=== PATIENT | female | born 1935 | race African-American/Black ===

== ENCOUNTER 2016-10-13 10:10 | Day surgery (SDC) | payer MEDICARE, OTHER ==
[2016-10-11 14:10] VITALS: BMI 24.7
[2016-10-13 10:39] VITALS: TEMP 98.3
[2016-10-13] MEDS ORDERED: LIDOCAINE HCL 1%, 10 MG/ML (20ML VIAL) ONE (11:01)
[2016-10-13] MEDS ORDERED: methylPREDNISolone ACET (DEPO) 80 MG/1 ML VIAL ONE (11:01)
[2016-10-13] MEDS ORDERED: BUPIVACAINE HCL/PF 0.5% (5MG/ML) 10 ML VIAL ONE (11:01)
--- NOTE | 2016-10-13 11:13 | HP ---
[facility]ellite [facility] - Chief Complaint Chief Complaint: right hip pain - Past Medical History Allergies/Adverse Reactions: Allergies Allergy/AdvReac Type Severity Reaction Status Date / Time No Known Allergies Allergy Verified 10/11/16 14:11 - Current Medications Current Medications: Home Medications Medication Instructions Recorded Acetaminophen [Tylenol] 500 mg PO PRN 10/11/16 Atorvastatin Ca [Lipitor] 10 mg PO HS 10/11/16 Olmesartan/Amlodipin/Hcthiazid 1 each PO DAILY 10/11/16 [Tribenzor 40-5-12.5 mg Tablet] Satellite Physical Exam - Physical Examination Vital Signs: Vital Signs Period Temp Pulse Resp BP Sys/Bardales Pulse Ox Last 24 Hr 98.3 F 101 18 147/84 98 General Appearance: Well Nourished, Well Developed, Alert & Oriented x3 ENT: Clear Lung: Normal air movement Heart: Regular rate & rhythm Extremities: Other (right hip- + ttp, decr rom, nvi xrays show severe hip djd) Neurological: Intact, Alert, Oriented Satellite Impression/Plan - Impression/Plan Impression: right hip djd Operative Procedure: right hip arthrogram with injection of cortisone Date to be Performed: 10/13/16
[2016-10-13] MEDS ORDERED: methylPREDNISolone ACET (DEPO) 80 MG/1 ML VIAL IM ONE (11:33)
[2016-10-13] MEDS ORDERED: LIDOCAINE HCL 1%, 10 MG/ML (20ML VIAL) IJ ONE (11:33)
--- NOTE | 2016-10-13 11:49 | OP ---
Operative Note - Note: Operative Date: 10/13/16 Pre-Operative Diagnosis: right hip DJD Operation: ARTHROGRAM RIGHT HIP AND INJECTION OF CORTISONE Post-Operative Diagnosis: Same as Pre-op Surgeon: Rafita Mcwilliams Anesthesia: General Operative Report Dictated: Yes
--- NOTE | 2016-10-13 12:33 | OP ---
DATE OF OPERATION: 10/13/2016 PREOPERATIVE DIAGNOSIS: Degenerative joint disease, right hip POSTOPERATIVE DIAGNOSIS: Degenerative joint disease, right hip PROCEDURE: Right hip arthrogram and injection of cortisone. SURGICAL ATTENDING: Rafita Mcwilliams MD ANESTHESIA: IV sedation. CLOSURE: A Band-Aid. DESCRIPTION OF OPERATIVE PROCEDURE: The patient was taken to the operating room on October 13, 2016. Right groin region was prepped and draped in the usual sterile fashion. Using a spinal needle and fluoroscopic guidance, the spinal needle was inserted from the groin region on an angle with the femoral neck into the femoral head. Proper placement of the needle into the hip joint was confirmed by use of injection of Hypaque, then, fluoroscopy to confirm that the Hypaque was indeed, in fact, into the hip joint. Once confirmation was obtained, 80 mg of Depo-Medrol along with 9 mL of 1% lidocaine was injected into the right hip joint. The needle was removed. Pressure was applied, and then, a Band-Aid was applied. Patient was awakened from anesthesia and transferred to recovery in stable condition. No complications. Estimated blood loss negligible. Bernard [id number]
[2016-10-13 13:12] VITALS: BP 143/72; PULSE 95
== END 2016-10-13 13:10 | disposition home or self-care (01) ==
LOC: JASU-SURG 10:10
PROVIDERS: ATTEND Orthopaedic Surgery
PROC: BQ00YZZ Plain Radiography of Right Hip using Other Contrast (ICD-10-PCS; 2016-10-13)
PROC: 3E0U33Z Introduction of Anti-inflammatory into Joints, Percutaneous Approach (ICD-10-PCS; 2016-10-13)
PROC: BR1 Imaging, Axial Skeleton, Except Skull and Facial Bones, Fluoroscopy (ICD-10-PCS; principal; 2016-10-13 11:45)
DX: M16.11 Unilateral primary osteoarthritis, right hip (principal)

== ENCOUNTER 2016-11-04 16:05 | Emergency (ER) | payer MEDICARE, OTHER ==
[2016-11-04 16:32] VITALS: BMI 24.8
--- NOTE | 2016-11-04 17:14 | PDOC ---
History of Present Illness - General Chief Complaint: Syncope/Near Syncope Stated Complaint: DIZZINESS Time Seen by Provider: 11/04/16 16:11 History Source: Patient, Other (daughter) Exam Limitations: No Limitations - History of Present Illness Initial Comments: 11/04/16 17:11 81-year-old female with history of hypertension presents to the ED with complaints of a witnessed near-syncopal episode. Patient was out at a festival standing up and awaiting for her daughter to return with food which she states started to feel slightly hot and the next thing she knows while she was eating the food she felt as if she was spinning and became generally weak. As per daughter who was standing right next to her, patient did complain of being hot and next thing she knows she was mumbling thing and seconds later collapsed where she caught her placing her in a sitting position. Daughter states is that she called call 911 her mother became aroused and was questioning why she calling 911 given a Cipro water and was asymptomatic. Patient denied any associated symptoms such as headache, visual changes, nausea, chest pain, abdominal pain, or shortness of breath. Patient states no recent change in medication and states did eat breakfast this morning. Patient does state walked outside to the festival which she normally does not do and is attributed the incident to the heat. Patient is followed by Dr. Ford Presenting Symptoms: Dizziness, Syncope (near) Timing/Duration: reports: resolved prior to arrival Prior Chest Pain/Cardiac Workup: reports: No prior chest pain, No prior cardiac workup. denies: Echocardiography, Stress Test Aspirin Received prior to arrival (Core Measure): No: no aspirin today Associated Symptoms: Yes: Dizziness, Syncope (near) Past History - Travel Traveled outside of the country in the last 30 days: No Close contact w/someone who was outside of country & ill: No - Past Medical History Allergies/Adverse Reactions: Allergies Allergy/AdvReac Type Severity Reaction Status Date / Time No Known Allergies Allergy Verified 11/04/16 16:24 Home Medications: Ambulatory Orders Acetaminophen [Tylenol] 500 mg PO PRN 10/11/16 Atorvastatin Ca [Lipitor] 10 mg PO HS 10/11/16 Olmesartan/Amlodipin/Hcthiazid [Tribenzor 40-5-12.5 mg Tablet] 1 each PO DAILY 10/11/16 Anemia: No Asthma: No Cancer: No Cardiac Disorders: No CVA: No COPD: No CHF: No Dementia: No Diabetes: No GI Disorders: No Disorders: No HTN: Yes Hypercholesterolemia: Yes Liver Disease: No Seizures: No Thyroid Disease: No - Psycho/Social/Smoking Cessation Hx Suicidal Ideation: No Smoking History: Never smoked Information on smoking cessation initiated: No Hx Alcohol Use: No Drug/Substance Use Hx: No Substance Use Type: None Patient Lives Alone: No Lives with/in: lives alone Cardiac Specific PMH - Complaint Specific PMHX Pacemaker: No Review of Systems - Review of Systems Able to Perform ROS?: Yes Constitutional: Yes: Weakness HEENTM: No: Symptoms Reported Respiratory: No: Symptoms reported Cardiac (ROS): Yes: Lightheadedness ABD/GI: No: Symptoms Reported : No: Symptoms Reported Musculoskeletal: No: Symptoms Reported Integumentary: No: Symptoms Reported Neurological: Yes: Weakness, Dizziness Endocrine: No: Symptoms Reported Hematologic/Lymphatic: No: Symptoms Reported *Physical Exam - Vital Signs Last Vital Signs Temp Pulse Resp BP Pulse Ox 97.5 F L 95 H 18 129/73 100 11/04/16 16:05 11/04/16 17:12 11/04/16 16:05 11/04/16 17:12 11/04/16 16:45 - Physical Exam General Appearance: Yes: Nourished, Appropriately Dressed. No: Apparent Distress HEENT: positive: EOMI, IGAN, TMs Normal, Pharynx Normal. negative: Pale Conjunctivae Neck: positive: Supple Respiratory/Chest: positive: Lungs Clear, Normal Breath Sounds. negative: Respiratory Distress, Accessory Muscle Use Cardiovascular: positive: Regular Rhythm, Regular Rate. negative: Murmur Gastrointestinal/Abdominal: positive: Soft. negative: Tenderness Extremity: positive: Normal Capillary Refill. negative: Pedal Edema Integumentary: positive: Normal Color, Warm, Moist Neurologic: positive: Normal Mood/Affect (a), Motor Strength 5/5 (ambulatory) Heart Score/ECG Review - History History: Slightly suspicious - Electrocardiogram EKG: Normal - Age Age: >/= 65 - Risk Factors Risk Factors Heart Score: Yes Hx Hypercholesterolemia, Yes Hx Hypertension Based on the list above the patient has:: 1-2 risk factors - Troponin Troponin: </= normal limit - Score Heart Score - Total: 3 - ECG Intrepretation Rhythm: Regular Rhythm (sinus rhythm 88. No ST depression/ elevation.) ED Treatment Course - LABORATORY CBC & Chemistry Diagram: 11/04/16 17:12 11/04/16 17:12 - ADDITIONAL ORDERS Additional order review: Laboratory Results 11/04/16 17:12 Sodium 138 Potassium 4.3 Chloride 102 Carbon Dioxide 28 Anion Gap 8 BUN 17 Creatinine 1.1 H Creat Clearance w eGFR 47.67 Random Glucose 97 Calcium 8.8 Total Bilirubin 0.3 AST 14 L ALT 16 Alkaline Phosphatase 83 Creatine Kinase 80 Troponin I < 0.02 Total Protein 7.3 Albumin 3.6 11/04/16 17:12 RBC 4.04 MCV 85.3 MCHC 33.0 RDW 13.9 MPV 7.7 Neutrophils % 76.5 Lymphocytes % 16.4 Monocytes % 6.2 Eosinophils % 0.5 Basophils % 0.4 - RADIOLOGY Radiology Studies Ordered: Category Date Time Status HEAD CT WITHOUT CONTRAST [CT] Stat CT Scan 11/04/16 17:35 Taken CHEST X-RAY PORTABLE* [RAD] Stat Radiology 11/04/16 16:47 Taken Medical Decision Making - Medical Decision Making 11/04/16 17:04 Patient here for near syncopal episode while at a festival outside today. Patient arrives asymptomatic but states second prior to the episode she was complaining of weakness and dizziness and feeling hot. Patient on exam had no acute findings. Patient was not found to be orthostatic but did have elevation of a heart rate from 82-101. Patient concerning for cardiac versus neurological event. Patient ordered for cardiac workup, head CT, urine, and we'll discuss case with her PCP. Patient states has never had an echo or cardiac workup and does have history of high cholesterol. 11/04/16 17:59 Laboratory Tests 11/04/16 11/04/16 17:12 17:12 WBC 6.6 Hgb 11.4 Hct 34.4 Neutrophils % 76.5 Sodium 138 Potassium 4.3 Chloride 102 Carbon Dioxide 28 Anion Gap 8 BUN 17 Creatinine 1.1 H Creat Clearance w eGFR 47.67 Random Glucose 97 Calcium 8.8 Total Bilirubin 0.3 AST 14 L ALT 16 Alkaline Phosphatase 83 Creatine Kinase 80 Troponin I < 0.02 Total Protein 7.3 Albumin 3.6 11/04/16 18:[address] was negative. Call placed to patient's PCP Dr. Chu scene and did microblog hospitalist to discuss admission. Patient now stating she does not want to stay and is fully aware by going home that she may have a cardiac or neurological event resulting in . *DC/Admit/Observation/Transfer Diagnosis at time of Disposition: Pre-syncope - Discharge Dispostion Disposition: AGAINST MEDICAL ADVICE Condition at time of disposition: Fair - Referrals Referrals: Martita Avila MD [Primary Care Provider] - - Patient Instructions Printed Discharge Instructions: DI for Syncope in Adults (Fainting) Additional Instructions: Understand by leaving AGAINST MEDICAL ADVICE that you are choosing the option for discharge. I do recommend you follow up with referred start up specialist and any given time return to the nearest emergency department if symptoms recur.
[2016-11-04 17:19] LABS: BASOPHIL 0.4 % (0-2.0); EOSINOPHIL 0.5 % (0-4.5); MCH 28.1 pg (25.7-33.7); MEAN CELL VOLUME 85.3 fl (80-96); MEAN PLT VOLUME 7.7 fl (7.5-11.1); NEUTROPHILS 76.5 % (42.8-82.8); PLATELET COUNT 245 K/MM3 (134-434); RDW 13.9 % (11.6-15.6); WHITE BLOOD COUNT 6.6 K/mm3 (4.0-10.0)
[2016-11-04 17:44] LABS: ALBUMIN 3.6 g/dl (3.4-5.0); ANION GAP 8 (8-16); BILIRUBIN,TOTAL 0.3 mg/dL (0.2-1.0); CALCIUM 8.8 mg/dL (8.5-10.1); CO2 28 mmol/L (21-32); CREATININE 1.1 mg/dL (0.55-1.02); GLUCOSE,RANDOM 97 mg/dL (74-106); SGOT/AST 14 U/L (15-37); SGPT/ALT 16 U/L (12-78); TOT PROT 7.3 g/dl (6.4-8.2)
[2016-11-04 17:47] LABS: ALK PHOS 83 U/L (45-117); CPK 80 IU/L (26-192); TROPONIN I < 0.02 ng/ml (0.00-0.05)
[2016-11-04 18:52] LABS: URINE APPEARANCE CLOUDY; URINE BILIRUBIN NEGATIVE (NEGATIVE); URINE BLOOD 3+ (NEGATIVE); URINE COLOR LTYELLOW; URINE GLUCOSE (UA) NEGATIVE (NEGATIVE); URINE KETONE NEGATIVE (NEGATIVE); URINE NITRITE NEGATIVE (NEGATIVE); URINE PROTEIN NEGATIVE (NEGATIVE); URINE UROBILINOGEN NEGATIVE mg/dL (0.2-1.0)
[2016-11-04 18:54] LABS: URINE LEUK ESTERASE 3+ (NEGATIVE)
[2016-11-04 18:55] LABS: URINE MUCUS RARE; URINE RBC 47 /hpf (0-3); URINE WBC 294 /hpf (3-5)
[2016-11-04 19:01] VITALS: BP 137/81; PULSE 89; TEMP 98
--- NOTE | 2016-11-06 16:38 | EKG ---
Test Reason : Blood Pressure : / mmHG Vent. Rate : 088 BPM Atrial Rate : 088 BPM P-R Int : 160 ms QRS Dur : 066 ms QT Int : 364 ms P-R-T Axes : 031 001 019 degrees QTc Int : 440 ms NORMAL SINUS RHYTHM NORMAL ECG NO PREVIOUS ECGS AVAILABLE Confirmed by LISA BERNARD MD ([id number]) on 11/06/2016 4:37:43 PM Referred By: Confirmed By:LISA BERNARD MD
== END 2016-11-04 19:01 | disposition left against medical advice (07) ==
LOC: JER 16:05
DX: R55 Syncope and collapse (principal); I10 Essential (primary) hypertension; E78.00 Pure hypercholesterolemia, unspecified
CPT/HCPCS: 36415; 70450-TC; 71010-TC; 80053; 81003; 81015; 84484; 85025; 93005; 93010; 99285-25

== ENCOUNTER 2018-12-01 12:20 | Inpatient (IN) | payer OTHER ==
[2018-12-01 12:24] VITALS: BMI 25.7
[2018-12-01] MEDS ORDERED: SODIUM CHLORIDE 1,000 ML IV ONE (12:39)
[2018-12-01] MEDS ORDERED: ASPIRIN 325 MG ENTERIC COATED TABLET (FP) PO ONE (12:45)
--- NOTE | 2018-12-01 12:51 | PDOC ---
History of Present Illness - General Chief Complaint: Lightheaded Stated Complaint: DIZZINESS Time Seen by Provider: 12/01/18 12:26 History Source: Patient Exam Limitations: No Limitations - History of Present Illness Initial Comments: Ketty Kincaid is an 83 yo F w a pmh of HTN and HCL who presents to the [facility] er after she experienced a transient episode of lightheadedness and slurred speech earlier this morning 1 hour prior to arrival. Her symptoms have now resolved upon entrance to the ED. She was standing in her kitchen preparing food while she was on the phone with her son when according to her son she started slurring her words and became confused and lightheaded. The patient does not recall slurring her words and feels like she does not remember the event well. She just remembers feeling dizzy described as lightheaded and felt like she was going to pass out. Her daughter lives in the building so ran to her apartment and noticed her mother was mildly confused so she brought her to the emergency department. The patient no longer feels lightheaded or dizzy here in the er. Patient endorses having a mild headache here in the ER. She denies having experienced any chest pain, SOB, difficulty breathing, numbness, tingling, weakness, or blurry vision. PCP: Mildred Luis Neurologist: None PSH: None reported Allergies: Seasonal, NKDA Social Hx: Denies smoking, drinking, or other substance usage. Lives home alone and is independent in her ADL. tPA Exclusion Checklist 0-3hr - Time Elapsed Date last known well: 12/01/18 Time last known well: 11:00 Elaspsed time: Day(s) and 9 Hour(s) and 52 Minutes - Thrombolytic Therapy Candidate Is the patient eligible for Thrombolytic Therapy?: No - Exclusion Criteria 0-3hr SBP greater than 185 or DBP greater than 110mmHg despite tx: No Recent IC/spinal surgery,head trauma or stroke w/in last 3mo: No Hx of previous IC hemorrhage, IC neoplasm, AVM or aneurysm: No Active internal bleeding: No Blding diathesis(low plt ct, inc PTT,INR>1.7 or use of NOAC): No Symptoms suggest subarachnoid hemorrhage: No CT demonstrates multilobar infarct(>1/3 cerebral hemiphere): No Arterial puncture at noncompressible site in previous 7 days: No Blood glucose concentration less than 50mg/dL (2.7mmol/L): No - Relative Exclusion Criteria 0-3h Life expectancy <1yr/severe co-morbid illness/[employer] on admit: No : No Patient/family refused: No Rapid improvement: Yes Stroke severity too mild: Yes Recent acute CT (w/in previous 3 months): No Seizure at onset with postictal residual neuro impairments: No Major surgery or serious trauma w/in previous 14 days: No Recent GI or hemorrhage (w/in previous 21 days): No - Ineligibility reason(s) Reasons No tPA given: Outside of window - delayed arrival, See reason(s) noted above tPA Exclusion checklist 3-4.5h - Time Elapsed Date last known well: 12/01/18 Time last known well: 11:00 Elaspsed time: Day(s) and 9 Hour(s) and 52 Minutes - Thrombolytic Therapy Candidate Is patient eligible for thrombolytic therapy: No - Exclusion Criteria 3-4.5 hr SBP greater than 185 or DBP greater than 110mmHg despite tx: No Recent IC/spinal surgery,head trauma or stroke<3mos.: No Hx IC hemorrhage, IC neoplasm, AV malformation or aneurysm: No Active internal bleeding: No Blding diathesis(low plt ct, inc PTT,INR>1.7 or use of NOAC): No Symptoms suggest subarachnoid hemorrhage: No CT demonstrates multilobar infarct(>1/3 cerebral hemiphere): No Arterial puncture at noncompressible site in previous 7 days: No Blood glucose concentration less than 50mg/dL (2.7mmol/L): No - Relative Exclusion Criteria 3-4.5 hr Life expectancy <1 yr or severe co-morbid illness: No : No Patient/family refused: No Rapid improvement: Yes Stroke severity too mild: Yes Recent acute CT (w/in previous 3 months): No Seizure at onset with postictal residual neuro impairments: No Major surgery or serious trauma w/in previous 14 days: No Recent GI or hemorrhage (w/in previous 21 days): No - Add'l Relative Exclusion 3-4.5 hr Age > 80: Yes Hx of both diabetes AND prior ischemic stroke: No Taking an oral anticoagulant regardless of INR: No NIHSS >25: No - Ineligibility reason(s) Reasons No tPA given: Outside of window - delayed arrival, See reason(s) noted above NIH Stroke Scale - Last Known Well Date/Time & Onset Date Last Known Well: 12/01/18 Time Last Known Well: 11:00 - Initial Evaluation Level of consciousness: Alert Ask patient the month and their age: Answers both correctly Ask patient to open & close eyes; make fist and let go: Obeys both correctly Best gaze (horizontal eye movement): Normal Visual field testing: No visual field loss Facial paresis (Show teeth/raise eyebrows/close eyes tight): Normal symmetrical movement Motor Function: Left Arm: Normal Motor Function: Right Arm: Normal (extends arm 90 (or 45) degrees for 10 seconds without drift Motor Function: Left Leg: Normal (extends leg 30 degrees for 5 seconds without drift) Motor Function: Right Leg: Normal (extends leg 30 degrees for 5 seconds without drift) Limb Ataxia: No ataxia Sensory(Use pinprick test arms,legs,trunk,face/side to side): Normal Best language (Describe picture, name items, read sentences): No Aphasia Dysarthria (read several words): Normal articulation Extinction and Inattention: No abnormality - Total Score NIH Stroke Scale Score: 0 Past History - Past Medical History Allergies/Adverse Reactions: Allergies Allergy/AdvReac Type Severity Reaction Status Date / Time No Known Allergies Allergy Verified 12/01/18 12:24 Home Medications: Ambulatory Orders Atorvastatin Ca [Lipitor] 10 mg PO HS 10/11/16 Olmesartan/Amlodipin/Hcthiazid [Tribenzor 40-5-12.5 mg Tablet] 1 each PO DAILY 10/11/16 Anemia: No Asthma: No Cancer: No Cardiac Disorders: No CVA: No COPD: No CHF: No Dementia: No Diabetes: No GI Disorders: No Disorders: No HTN: Yes Hypercholesterolemia: Yes Liver Disease: No Seizures: No Thyroid Disease: No - Psycho Social/Smoking Cessation Hx Smoking History: Never smoked Hx Alcohol Use: No Drug/Substance Use Hx: No Substance Use Type: None Review of Systems - Review of Systems Able to Perform ROS?: Yes Comments:: CONSTITUTIONAL: Absent: fever, chills, diaphoresis, generalized weakness, malaise, loss of appetite HEENT: Absent: rhinorrhea, nasal congestion, throat pain, throat swelling, difficulty swallowing, mouth swelling, ear pain, eye pain, visual Changes CARDIOVASCULAR: Present: Lightheadedness Absent: chest pain, syncope, palpitations, irregular heart rate, peripheral edema RESPIRATORY: Absent: cough, shortness of breath, dyspnea with exertion, orthopnea, wheezing, stridor, hemoptysis GASTROINTESTINAL: Absent: abdominal pain, abdominal distension, nausea, vomiting, diarrhea, constipation, melena, hematochezia GENITOURINARY: Absent: dysuria, frequency, urgency, hesitancy, hematuria, flank pain, genital pain MUSCULOSKELETAL: Absent: myalgia, arthralgia, joint swelling SKIN: Absent: rash, itching, pallor HEMATOLOGIC/IMMUNOLOGIC: Absent: easy bleeding, easy bruising, lymphadenopathy, frequent infections ENDOCRINE: Absent: unexplained weight gain, unexplained weight loss, heat intolerance, cold intolerance NEUROLOGIC: Present: headache, mental status changes Absent: focal weakness or paresthesias, dizziness, unsteady gait, seizure, bladder or bowel incontinence PSYCHIATRIC: Absent: anxiety, depression, suicidal or homicidal ideation, hallucinations. *Physical Exam - Vital Signs Last Vital Signs Temp Pulse Resp BP Pulse Ox 97 F L 84 18 116/58 L 100 12/01/18 12:21 12/01/18 12:21 12/01/18 12:21 12/01/18 12:21 12/01/18 12:21 - Physical Exam Comments: GENERAL: Well developed, well nourished. Awake and alert. No acute distress. HEENT: Normocephalic, atraumatic. PERRLA, EOMI. No conjunctival pallor. Sclera are non- icteric. Moist mucous membranes. Oropharynx is clear. NECK: Supple. Full ROM. No JVD. No thyromegaly. No lymphadenopathy. CARDIOVASCULAR: Regular rate and rhythm. No murmurs, rubs, or gallops. Distal pulses are 2+ and symmetric. PULMONARY: No evidence of respiratory distress. Lungs clear to auscultation bilaterally. No wheezing, rales or rhonchi. ABDOMINAL: Soft. Non-tender. Non-distended. No rebound or guarding. No organomegaly. Normoactive bowel sounds. MUSCULOSKELETAL Normal range of motion at all joints. No bony deformities or tenderness. No CVA tenderness. EXTREMITIES: No cyanosis. No clubbing. No edema. No calf tenderness. SKIN: Warm and dry. Normal capillary refill. No rashes. No jaundice. NEUROLOGICAL: Alert, awake, appropriate. Cranial nerves 2-12 intact. No deficits to light touch in face, upper extremities and lower extremities. No motor deficits in the in face, upper extremities and lower extremities. Normal speech. Gait is normal without ataxia. PSYCHIATRIC: Cooperative. Good eye contact. Appropriate mood and affect. ED Treatment Course - LABORATORY CBC & Chemistry Diagram: 12/01/18 12:51 12/01/18 12:51 - RADIOLOGY Radiology Studies Ordered: Category Date Time Status HEAD CT WITHOUT CONTRAST [CT] Stat CT Scan 12/01/18 12:40 Ordered CHEST PA & LAT [RAD] Stat Radiology 12/01/18 12:40 Ordered Radiograph Interpretation: Head CT: Cranial CT without contrast Clinical information: evaluate for pathology Multiplanar imaging was performed. Intravenous contrast was not administered. No intraparenchymal hemorrhage is seen. There is no CT evidence of acute subarachnoid hemorrhage. No extra-axial fluid collection is noted. There is no gross mass lesion on noncontrast imaging. No definite acute infarct is identified within the limitations of CT. Several subtle punctate bilateral basal ganglia hypodense foci noted probably representing chronic infarcts. Mild periventricular and subcortical chronic microvascular ischemic changes are seen. There is no obstructive hydrocephalus. The calvarium appears intact. The partially imaged paranasal sinuses demonstrate no opacification. Impression: No CT evidence of acute intracranial pathology. There has been no definite interval change in comparison to a prior CT study of 11/04/2016. CXR: Chest: Altered mental status. 2 views of the chest reveal degenerative changes with wedging, clear lungs, sclerotic knob, normal riky and normal heart. The angles are sharp. Soft tissues are intact. There are degenerative changes. 2016, there is no change of first nature. Impression: No acute chest pathology. Medical Decision Making - Medical Decision Making Ketty Kincaid is an 83 yo F w a pmh of HTN and HCL who presents to the [facility] er after she experienced a transient episode of lightheadedness and slurred speech earlier this morning 1 hour prior to arrival. Her symptoms have now resolved upon entrance to the ED. She was standing in her kitchen preparing food while she was on the phone with her son when according to her son she started slurring her words and became confused and lightheaded. The patient does not recall slurring her words and feels like she does not remember the event well. She just remembers feeling dizzy described as lightheaded and felt like she was going to pass out. Her daughter lives in the building so ran to her apartment and noticed her mother was mildly confused so she brought her to the emergency department. The patient no longer feels lightheaded or dizzy here in the er. Patient endorses having a mild headache here in the ER. She denies having experienced any chest pain, SOB, difficulty breathing, numbness, tingling, weakness, or blurry vision. Vital Signs Temp Pulse Resp BP Pulse Ox 97 F L 84 18 116/58 L 100 12/01/18 12:21 12/01/18 12:21 12/01/18 12:21 12/01/18 12:21 12/01/18 12:21 DDx IBNLT: CVA/TIA, ACS/CT, syncope, dehydration, arrhythmia, electrolyte/ metabolic disturbance, UTI/Farzad, PNA, orthostatic hypotension Plan: Labs, EKG, CXR, Head CT, likely admit for stroke work up Labs: Elevated Cr at 1.4, otherwise unremarkable Urine: Suggests patient has a UTI - Will treat with ceftriaxone EKG: NS rate of 79, narrow complexes, normal axis, no hypertrophy, no ST elevations or depressions, no abnormal TWI's, no Q waves, QTc 454, LA 176 CXR: Unremarkable Head CT: No evidence of acute pathology - chronic ischemia and minor infarctions over time which are not acute. Disposition: Admit to hospital for stroke workup - Placing call to Dr. Luis office for admission at 2:30 pm - I spoke with Dr. Luis who accepts the patient for admission - He requests to have a neuro consult placed to Dr. Navarrete - Consult placed in [facility] - will give Dr. Navarrete a call as well. Neuro Consult - Dr. Navarrete: - Answering service called at 3:[address] Navarrete would give us a call back in the ER - Dr. Navarrete called us back and is aware patient is in hospita and will follow. He recommends putting the patient on permanent aspirin and admitting patient to stroke unit. Discharge - Discharge Information Problems reviewed: Yes Clinical Impression/Diagnosis: Near syncope, Light-headedness, TIA (transient ischemic attack), Slurred speech Condition: Stable - Admission Yes - Follow up/Referral - Patient Discharge Instructions - Post Discharge Activity
[2018-12-01] MEDS ORDERED: ASPIRIN 325 MG ENTERIC COATED TABLET (FP) ONE (13:11)
--- NOTE | 2018-12-01 13:20 | PDOC ---
Attending Attestation - Resident Resident Name: Sandip Lynn - ED Attending Attestation I have performed the following: I have examined & evaluated the patient, The case was reviewed & discussed with the resident, I agree w/resident's findings & plan, Exceptions are as noted - HPI HPI: 12/01/18 13:20 83y F hx htn, hl, presents for evaluation of slurred speech. The patient was in her usual state of health last several days this morning the patient was talking on the phone with her son when her son noticed that she was slow to respond and had some slurred speech. Patient states that at that time she was using the restroom she had a large bowel movement and felt very lightheaded, sweaty, generally weak she endorses that the symptoms persisted for approximately 30 to 40 minutes. The family went to go check on the patient immediately as he lived in the same building and noticed the patient was sweating and very weak appearing and pale. The patient denied any associated headache, chest pain, palpitations, abdominal pain, back pain, numbness, tingling, weakness, fevers, chills, cough, blood per rectum, dysuria. Patient states that she felt better once she got to the hospital. The patient is currently asymptomatic with full resolution of her symptoms. PMD: Dr. Luis Card: Dr Alfredo - Physicial Exam PE: 12/01/18 15:12 GENERAL: The patient is awake, alert, and fully oriented, Nontoxic - in no acute distress. HEAD: Normocephalic, atraumatic. EYES: extraocular movements intact, sclera anicteric, conjunctiva clear. ENT: Normal voice, Moist mucous membranes. NECK: Normal range of motion, supple LUNGS: Breath sounds equal, clear to auscultation bilaterally. No wheezes, no rhonchi, no rales. HEART: Regular rate and rhythm, normal S1 and S2 without murmur, rub or gallop. ABDOMEN: Soft, nontender, No guarding, no rebound. No CVA tenderness EXTREMITIES: Normal range of motion, no edema. PSYCH: Normal mood, normal affect. SKIN: Warm, Dry, normal turgor, NEURO: Mental status: The patient is oriented x3. Cranial nerves: Cranial nerves II through XII are intact Motor: The upper extremities are 5 over 5 in all muscle groups. The lower extremities are 5 over 5 in all muscle groups. Negative pronator drift Sensation: Sensation is intact to light touch throughout. Cerebellar: [id number] is normal in both upper extremities. Gait: Normal. - Medical Decision Making 12/01/18 15:12 Differential for the patient's symptoms includes possible vasovagal episode, TIA , anemia, metabolic derangements, arrhythmia The patient's EKG was a normal sinus rhythm her labs were reviewed and they are normal CT noted for chronic ischemic changes We will admit the patient for further management Heart Score/ECG Review - ECG Impressions Comment:: 12/01/18 15:13 Twelve-lead EKG was performed and reviewed by me. There is normal sinus rhythm with a normal rate. Rate of 79 The axis is normal. The intervals are normal. There is normal R wave progression There are no ST or T wave abnormalities. Impression: Normal twelve-lead EKG NIH Stroke Scale - Last Known Well Date/Time & Onset Date Last Known Well: 12/01/18 Time Last Known Well: 11:00 - Initial Evaluation Level of consciousness: Alert Ask patient the month and their age: Answers both correctly Ask patient to open & close eyes; make fist and let go: Obeys both correctly Best gaze (horizontal eye movement): Normal Visual field testing: No visual field loss Facial paresis (Show teeth/raise eyebrows/close eyes tight): Normal symmetrical movement Motor Function: Left Arm: Normal Motor Function: Right Arm: Normal (extends arm 90 (or 45) degrees for 10 seconds without drift Motor Function: Left Leg: Normal (extends leg 30 degrees for 5 seconds without drift) Motor Function: Right Leg: Normal (extends leg 30 degrees for 5 seconds without drift) Limb Ataxia: No ataxia Sensory(Use pinprick test arms,legs,trunk,face/side to side): Normal Best language (Describe picture, name items, read sentences): No Aphasia Dysarthria (read several words): Normal articulation Extinction and Inattention: No abnormality - Total Score NIH Stroke Scale Score: 0 tPA Exclusion Checklist 0-3hr - Time Elapsed Date last known well: 12/01/18 Time last known well: 11:00 Elaspsed time: Day(s) and 4 Hour(s) and 22 Minutes - Thrombolytic Therapy Candidate Is the patient eligible for Thrombolytic Therapy?: No - Relative Exclusion Criteria 0-3h Rapid improvement: Yes
[2018-12-01 13:24] LABS: BASO % 0.6 % (0-2.0); EOS % 0.6 % (0-4.5); HEMATOCRIT 33.6 % (32.4-45.2); HEMOGLOBIN 11.2 GM/dL (10.7-15.3); LYMPH % 11.9 % (8-40); MCH 28.6 pg (25.7-33.7); MCHC 33.3 g/dl (32.0-36.0); MEAN CELL VOLUME 85.8 fl (80-96); MEAN PLT VOLUME 7.3 fl (7.5-11.1); NEUT % 80.9 % (42.8-82.8); PLATELET COUNT 284 K/MM3 (134-434); RBC 3.91 M/mm3 (3.60-5.2); RDW 14.5 % (11.6-15.6); WHITE BLOOD COUNT 7.6 K/mm3 (4.0-10.0)
[2018-12-01 13:37] LABS: INR 1.02 (0.83-1.09)
[2018-12-01 13:46] LABS: MAGNESIUM 1.8 mg/dL (1.8-2.4)
[2018-12-01 13:53] LABS: ALBUMIN 3.8 g/dl (3.4-5.0); BILIRUBIN,TOTAL 0.4 mg/dL (0.2-1); CALCIUM 9.2 mg/dL (8.5-10.1); CREATININE 1.4 mg/dL (0.55-1.3); POTASSIUM 3.7 mmol/L (3.5-5.1); TOT PROT 7.7 g/dl (6.4-8.2)
[2018-12-01] MEDS ORDERED: SODIUM CHLORIDE 0.9% 500 ML INFUS.BAG IV ONE (14:17)
[2018-12-01] MEDS ORDERED: SODIUM CHLORIDE 1,000 ML IV SCH (15:15)
[2018-12-01 16:53] LABS: EPI CELLS 6.3 /HPF (0-5/HPF); HYALINE CASTS 11 /lpf (0-8); URINE APPEARANCE CLOUDY; URINE BACTERIA 10.1 /hpf (NEGATIVE); URINE BILIRUBIN NEGATIVE (NEGATIVE); URINE COLOR YELLOW; URINE GLUCOSE (UA) NEGATIVE (NEGATIVE); URINE KETONE NEGATIVE (NEGATIVE); URINE LEUK ESTERASE 3+ (NEGATIVE); URINE NITRITE NEGATIVE (NEGATIVE); URINE PROTEIN NEGATIVE (NEGATIVE); URINE RBC 37 /hpf (0-4); URINE UROBILINOGEN 0.2 mg/dL (0.2-1.0); URINE WBC 87 /hpf (0-5)
[2018-12-01] MEDS ORDERED: CEFTRIAXONE 1 GM in DEXTROSE 5%-WATER - 50 ML IVPB ONE (19:21)
[2018-12-01] MEDS ORDERED: CEFTRIAXONE 1 GM/50 ML BAG ONE (19:27)
--- NOTE | 2018-12-02 09:46 | CON.NEURO ---
Consult Consult Specialty:: Rosalba Referred by:: PCP Toby - History of Present Illness History of Present Illness: this is a very pleasant 83-year-old right-handed female patient with present medical history significant for osteoarthritis coronary artery disease hypertension patient was at her usual status of health until yesterday she was in the bathroom she was on the toilet seat talking to her son when she had a sudden onset of feeling dizzy lightheaded no loss of consciousness no chest pain or palpitation patient was slurring her speech according to the son. The family was alerted atient's daughter came into the house "door patient was up and she was out of the bathroom. No report of any recent travel no report of any recent head trauma patient describes no neck pain no double vision or blurry vision. Patient was stepwise brought into [facility] stroke alert was iinitiated CAT scan of the head revealed no evidence of acute pathology at 7 PM I spoke to the emergency room resident decision was made to give the patient aspirin overnight patient with no recurrence of her symptoms patient was kept in the emergency room. - History Source History Provided By: Patient Limitations to Obtaining History: No Limitations - Alcohol/Substance Use Hx Alcohol Use: No - Smoking History Smoking history: Never smoked Home Medications - Allergies Allergies/Adverse Reactions: Allergies Allergy/AdvReac Type Severity Reaction Status Date / Time No Known Allergies Allergy Verified 12/01/18 12:24 - Home Medications Home Medications: Ambulatory Orders Atorvastatin Ca [Lipitor] 10 mg PO HS 10/11/16 Olmesartan/Amlodipin/Hcthiazid [Tribenzor 40-5-12.5 mg Tablet] 1 each PO DAILY 10/11/16 Family Medical History Family History: Unremarkable Review of Systems - Review of Systems Constitutional: reports: No Symptoms Eyes: reports: No Symptoms HENT: reports: No Symptoms Neurological: reports: Headache, Incoordination, Numbness Physical Exam-Neuro Vital Signs: Vital Signs Temperature 98.6 F 12/02/18 04:22 Pulse Rate 79 12/02/18 07:35 Respiratory Rate 20 12/02/18 07:35 Blood Pressure 124/73 12/02/18 07:35 O2 Sat by Pulse Oximetry (%) 98 12/02/18 07:35 Constitutional: Yes: Well Nourished Neck: Yes: WNL Cardiovascular: Yes: WNL Respiratory: Yes: WNL Labs: CBC, BMP 12/01/18 12:51 12/01/18 12:51 INR, PTT INR 1.02 (0.83-1.09) 12/01/18 12:51 - Neuro Exam Level Of Consciousness: Yes: Oriented to Person, Oriented to Place, Oriented to Time Eyes: Yes: PERRLA Speech: WNL Dominant Hand: Right Cranial Nerves II-XII Intact: Yes Gag: Present DTR's: 1+ Left Bicep, 1+ Right Bicep, 1+ Left Tricep, 1+ Right Tricep Response to light touch: Normal Response to pain prick: Normal Response to temperature: Normal Response to vibration: Normal Motor Strength: 3/5: Left Arm, Right Arm, Left Leg, Right Leg Gait: Deferred Imaging - Results Cat Scan: Image Reviewed Problem List - Problems (1) TIA (transient ischemic attack) Assessment/Plan: no recurrence of the symptoms overnight. No reported ccardiac arrhythmia. Transient ischemic attack. Risk factors including age hypertension and hypercholesterolemia. 1. Neuro checks every 1 hour. 2. MRI and carotid Doppler as an outpatient. 3. Baby aspirin. 4. Tight blood cholesterol control. 5. Follow-up with neurology as an outpatient. Thank you very much for allowing me to be part of this patient neurological care. Tremayne Navarrete MD Code(s): G45.9 - TRANSIENT CEREBRAL ISCHEMIC ATTACK, UNSPECIFIED
[2018-12-02 09:49] VITALS: BP 114/53; PULSE 77; TEMP 97.9
--- NOTE | 2018-12-02 10:30 | HP ---
DATE OF ADMISSION: 12/01/2018 This is an 83-year-old female with hypertension who came to the emergency room with complaints of slurring speech. Patient was in usual state of health. Yesterday morning patient felt disoriented for a short period, so the family brought her up here. PHYSICAL EXAMINATION: General: This morning when I see her, she is in good state of health. Awake, alert, oriented not in distress. HEENT: Unremarkable. Neck: Supple. No JVD. Lungs: Clear. Heart: S1, S2 normal. Abdomen: Soft. No edema. Neurologic: No neurological deficit. Psychiatric: Normal mood. Patient's CAT scan and laboratories, everything is within normal limits. CAT scan showed no acute changes. Laboratories: WBC 7.6, hemoglobin 11.2. Chemistry: Electrolytes are normal. Urine: Possible leukocyte esterase 3+, possible UTI. PLAN: Discontinue home on aspirin and Cipro 500 b.i.d. for 7 days. Continue her other medications. FINAL DIAGNOSES: Urinary tract infection, transient ischemic attack, hypertension. Bernard [id number]
--- NOTE | 2018-12-02 12:56 | EKG ---
Test Reason : Blood Pressure : / mmHG Vent. Rate : 079 BPM Atrial Rate : 079 BPM P-R Int : 176 ms QRS Dur : 068 ms QT Int : 396 ms P-R-T Axes : 054 036 034 degrees QTc Int : 454 ms SINUS RHYTHM WITH OCCASIONAL PREMATURE VENTRICULAR COMPLEXES OTHERWISE NORMAL ECG WHEN COMPARED WITH ECG OF 04-NOV-2016 16:41, PREMATURE VENTRICULAR COMPLEXES ARE NOW PRESENT Confirmed by DEANGELO ISRAEL MD ([id number]) on 12/02/2018 12:55:57 PM Referred By: Confirmed By:DEANGELO ISRAEL MD
== END 2018-12-02 09:34 | disposition home or self-care (01) | DRG 69 ==
LOC: JER 12:20 → JERBED 14:39
PROVIDERS: ADMIT Internal Medicine; ATTEND Internal Medicine
DX: G45.9 Transient cerebral ischemic attack, unspecified (principal); I10 Essential (primary) hypertension
CPT/HCPCS: 36415; 70450-TC; 71046-TC-FY; 80053; 81003; 82465; 82550; 83718; 83721; 83735; 84478; 84484; 85025; 85610; 86850; 86900; 86901; 93005; 93010; 99284-25; J7030

== ENCOUNTER 2024-01-17 13:15 | Emergency (ER) | payer OTHER ==
[2024-01-17 13:23] VITALS: RESP 20
[2024-01-17] MEDS: SODIUM CHLORIDE 0.9% 1000 ML INFUS.BAG IV STA (13:52)
[2024-01-17] MEDS ORDERED: ACETAMINOPHEN INJECTION 100 ML ONE (13:53)
[2024-01-17 13:55] LABS: VENOUS BASE EXCESS -2.3 mmol/L (-2-2); VENOUS O2 SATURATION 94.5 % (70-80); VENOUS PCO2 28.4 mmHg (38-52); VENOUS PH 7.475 (7.310-7.410)
[2024-01-17 13:56] LABS: HEMATOCRIT 30.9 % (32.4-45.2); HEMOGLOBIN 9.6 GM/dL (10.7-15.3); MCH 24.3 pg (25.7-33.7); MCHC 31.2 g/dl (32.0-36.0); PLATELET COUNT 367 10^3/uL (134-434); RBC 3.95 M/mm3 (3.60-5.2); WHITE BLOOD COUNT 16.6 K/mm3 (4.0-10.0)
[2024-01-17] MEDS: ACETAMINOPHEN 1000 MG/100 ML BAG IVPB ONE (13:58)
[2024-01-17 14:01] LABS: INR 1.11 (0.83-1.09); PROTHROMBIN TIME (PATIENT) 12.7 SEC (9.7-13.0)
[2024-01-17 14:04] LABS: ACTIVATED PTT 25.1 SECONDS (25.2-36.5)
[2024-01-17 14:13] LABS: POTASSIUM 3.4 mmol/L (3.5-5.1)
[2024-01-17 14:15] LABS: ALBUMIN 3.4 g/dl (3.4-5.0); BLOOD UREA NITROGEN 12.3 mg/dL (7-18); CALCIUM 9.1 mg/dL (8.5-10.1)
[2024-01-17 14:19] LABS: BILIRUBIN,TOTAL 0.8 mg/dL (0.2-1); CREATININE 1.1 mg/dL (0.55-1.3); TOT PROT 7.7 g/dl (6.4-8.2)
[2024-01-17 15:16] LABS: URINE BILIRUBIN NEGATIVE (NEGATIVE); URINE GLUCOSE (UA) NEGATIVE (NEGATIVE)
[2024-01-17 15:18] LABS: URINE APPEARANCE TURBID; URINE COLOR RED; URINE PROTEIN TRACE (NEGATIVE)
[2024-01-17 15:20] LABS: EPI CELLS 3 /uL (0-25.1); HYALINE CASTS 1 /uL (0-3.1); URINE BACTERIA 70 /uL (0-1359); URINE RBC 4065 /uL (0-23.9); URINE WBC 4999 /uL (0-25.8)
[2024-01-17] MEDS ORDERED: CEFTRIAXONE 1 G/50 ML PREMIX 50 ML IVPB ONE (16:11)
[2024-01-17] MEDS: CEFTRIAXONE 1,000 MG in DEXTROSE 5%-WATER - 50 ML IVPB ONE (16:16)
[2024-01-17 16:24] VITALS: BP 107/62; PULSE 86; TEMP 97.9
== END 2024-01-17 16:43 | disposition home or self-care (01) ==
LOC: JER 13:15
PROC: 3E033NZ Introduction of Analgesics, Hypnotics, Sedatives into Peripheral Vein, Percutaneous Approach (ICD-10-PCS; principal; 2024-01-17)
PROC: 3E03329 Introduction of Other Anti-infective into Peripheral Vein, Percutaneous Approach (ICD-10-PCS; 2024-01-17)
DX: N39.0 Urinary tract infection, site not specified (principal); R53.1 Weakness; R11.0 Nausea; R68.83 Chills (without fever); R00.0 Tachycardia, unspecified; Z20.822 Contact with and (suspected) exposure to COVID-19
CPT/HCPCS: 0241U-QW; 36415; 71045-TC-FY; 71046-TC-FY; 80053; 81003; 82803; 83605; 83735; 84484; 85025; 85610; 85730; 86850; 86900; 86901; 87040; 87086; 93005; 93010; 96374; 96375; 99285-25; J0131